=== PATIENT | female | born 1950 | race Caucasian/White ===

== ENCOUNTER → 2024-05-05 14:06 | Outpatient (REF) | payer MEDICARE, SELFPAY | LOC: HWWDC 14:06 | PROVIDERS: ATTENDING PHYSICIAN Nurse Practitioner Family | DX: Z12.31 Encounter for screening mammogram for malignant neoplasm of breast (principal) | CPT/HCPCS: 77063; 77067 ==

== ENCOUNTER → 2024-07-06 14:29 | Outpatient (REF) | payer MEDICARE, SELFPAY | LOC: MRI 14:29 | PROVIDERS: ATTENDING PHYSICIAN Physician Assistant Surgical; FAMILY PHYSICIAN Family Medicine | DX: M54.12 Radiculopathy, cervical region (principal) | CPT/HCPCS: 72141 ==

== ENCOUNTER → 2024-07-25 08:44 | Outpatient (REF) | payer MEDICARE, SELFPAY | LOC: PAVMRI 08:44 | PROVIDERS: ATTENDING PHYSICIAN Physician Assistant Surgical; FAMILY PHYSICIAN Family Medicine | DX: M25.512 Pain in left shoulder (principal) | CPT/HCPCS: 73221 ==